=== PATIENT | male | born 1945 | race Hispanic/Latino ===

== ENCOUNTER 2017-03-31 13:55 | Outpatient (CLI) | payer MEDICARE, BC ==
[2017-03-31 15:09] LABS: Blood Urea Nitrogen 20 mg/dL (9-20)
[2017-03-31] MEDS ORDERED: NACL ONE (15:39)
--- NOTE | 2017-03-31 16:31 | Cat Scan Report ---
Cranial CT with and without contrast. History: Hypogonadism. Findings: The posterior fossa is normal. The ventricles are normal in size and contour. Cortical atrophy is mild. There are no masses or extra-axial collections. There is no parenchymal enhancement after contrast administration. The calvarium is intact. Impression: Mild atrophic changes, otherwise unremarkable study.
== END 2017-03-31 13:56 | disposition home or self-care (01) ==
LOC: MRI 13:55 → CT 13:56
PROVIDERS: ATTEND Internal Medicine
DX: E29.1 Testicular hypofunction (principal); G31.89 Other specified degenerative diseases of nervous system
CPT/HCPCS: 36415; 70470; 82565; 84520; Q9967

== ENCOUNTER 2017-04-10 11:04 | Outpatient (CLI) | payer MEDICARE, BC ==
--- NOTE | 2017-04-10 14:53 | Magnetic Resonance Report ---
MRI BRAIN WITH/WITHOUT CONTRAST: History: Hypogonadism Technique: Multiple T1 and T2 weighted images were obtained in multiple planes. Axial diffusion and gradient imaging was performed. Post contrast T1 images in two planes were obtained following IV gadolinium. Findings: Mild diffuse cortical volume loss and nonspecific chronic white matter changes are identified which appear appropriate for this persons age. The brain parenchyma signal intensity and its richards-white interface are normal on all sequences. No abnormal parenchymal signal. No diffusion restriction, hemorrhage, mass effect or extra-axial fluid collection. Ventricular size is normal and symmetric. The basal cisterns are clear. Sella turcica contents are unremarkable. The brainstem and cerebellar hemispheres are within normal limits. The fourth ventricle is midline. The paranasal sinuses and mastoid air cells are well aerated. Normal flow voids are identified in the appropriate vessels at the [place]. No abnormal enhancement is identified following IV gadolinium. Impression: Essentially unremarkable MR brain with and without contrast. Age appropriate volume loss and chronic white matter changes. No sellar abnormality is appreciated.
--- NOTE | 2017-04-10 14:54 | Magnetic Resonance Report ---
MRA HEAD WITHOUT CONTRAST HISTORY: Hypogonadism. [id number] imaging with MIP reformations of the [place] is submitted. The arteries appear widely patent and free of hemodynamically significant stenosis or aneurysm dilatation. Both vertebral arteries are identified appearing patent as well. IMPRESSION: Unremarkable MRA head.
== END 2017-04-10 11:05 | disposition home or self-care (01) ==
LOC: MRI 11:04
PROVIDERS: ATTEND Internal Medicine
DX: E29.1 Testicular hypofunction (principal); R90.82 White matter disease, unspecified
CPT/HCPCS: 70544; 70553; A9577

== ENCOUNTER 2019-03-31 10:42 | Outpatient (CLI) | payer MEDICARE ==
[2019-03-31 13:07] LABS: Hematocrit 37.1 % (35.5-45.6); Hemoglobin 12.5 gm/dl (11.8-15.2); Mean Corpuscular HGB Conc 34 % (32-34); Mean Corpuscular Volume 88 fl (84-94); Platelet Count 240 K/mm3 (140-440); Red Blood Count 4.23 M/mm3 (3.65-5.03); Red Cell Distribution Width 16.7 % (13.2-15.2)
[2019-03-31 13:25] LABS: Alanine Aminotransferase 26 units/L (7-56); Albumin 4.4 g/dL (3.9-5); BUN/Creatinine Ratio 63; Blood Urea Nitrogen 25 mg/dL (9-20); Calcium 9.6 mg/dL (8.4-10.2); Hemolysis Index 4; LDL Cholesterol,Direct 65 mg/dL (50-130)
[2019-03-31 13:36] LABS: Chol/HDL Ratio 2.07 %; HDL Cholesterol 66 mg/dL (40-59)
[2019-04-03 14:04] LABS: Vitamin D, 25-OH, D2 <4 ng/mL
== END 2019-03-31 10:43 | disposition home or self-care (01) ==
LOC: LAB 10:42
PROVIDERS: ATTEND Internal Medicine
DX: E78.2 Mixed hyperlipidemia (principal); E66.09 Other obesity due to excess calories; Z13.21 Encounter for screening for nutritional disorder; R73.03 Prediabetes
CPT/HCPCS: 36415; 80053; 80061; 82306; 82607; 84443; 85027

== ENCOUNTER 2019-08-09 14:40 | Outpatient (CLI) | payer MEDICARE ==
--- NOTE | 2019-08-09 15:28 | XRay Report ---
CHEST 2 VIEWS INDICATION: Z01.810 ENCOUNTER FOR PREPROCEDURAL CARDIOVASCULAR EXAMINATION. COMPARISON: None. FINDINGS: Support devices: None. Heart: Within normal limits. Pulmonary vasculature: Normal. Lungs/pleura: The lungs are normally expanded but hyperlucent. No airspace disease or pleural effusio n. No pneumothorax. Additional findings: Aortic calcification and tortuosity. Degenerative change in the spine. IMPRESSION: 1. No acute findings. 2. Hypertensive/atherosclerotic changes in the aorta. 3. COPD. Signer Name: Claude West MD Signed: 08/09/2019 3:23 PM Workstation Name: [id number]
== END 2019-08-09 14:41 | disposition home or self-care (01) ==
LOC: XRAY 14:40
PROVIDERS: ATTEND Internal Medicine
DX: Z01.810 Encounter for preprocedural cardiovascular examination (principal); J44.9 Chronic obstructive pulmonary disease, unspecified; I70.0 Atherosclerosis of aorta; M47.819 Spondylosis without myelopathy or radiculopathy, site unspecified
CPT/HCPCS: 71046

== ENCOUNTER 2019-08-16 12:28 | Outpatient (CLI) | payer MEDICARE ==
[2019-08-16 12:51] LABS: Basophils # (Auto) 0.1 K/mm3 (0.0-0.1); Basophils % (Auto) 0.9 % (0.0-1.8); Eosinophils # (Auto) 0.1 K/mm3 (0.0-0.4); Eosinophils % (Auto) 2.2 % (0.0-4.3); Lymphocytes # (Auto) 0.5 K/mm3 (1.2-5.4); Lymphocytes % (Auto) 9.3 % (13.4-35.0); Mean Corpuscular HGB Conc 33 % (32-34); Mean Corpuscular Volume 87 fl (84-94); Monocytes # (Auto) 0.6 K/mm3 (0.0-0.8); Monocytes % (Auto) 11.9 % (0.0-7.3); Platelet Count 185 K/mm3 (140-440); Red Blood Count 4.12 M/mm3 (3.65-5.03); Red Cell Distribution Width 14.6 % (13.2-15.2)
[2019-08-16 12:54] LABS: Bacteria,Urine 1+ /HPF (Negative); Bilirubin,Urine NEG (Negative); Blood,Urine NEG (Negative); Color,Urine Yellow (Yellow); Mucus,Urine FEW /HPF; Protein,Urine <15 mg/dL mg/dL (Negative); Urobilinogen,Urine < 2.0 mg/dL (<2.0)
[2019-08-16 13:00] LABS: INR 0.92 (0.87-1.13)
[2019-08-16 13:01] LABS: Partial Thromboplastin Time 30.6 Sec. (24.2-36.6)
[2019-08-16 13:12] LABS: Alanine Aminotransferase 61 units/L (7-56); Albumin 4.1 g/dL (3.9-5); BUN/Creatinine Ratio 50; Blood Urea Nitrogen 25 mg/dL (9-20); Hemolysis Index 1
== END 2019-08-16 12:29 | disposition home or self-care (01) ==
LOC: LAB 12:28
PROVIDERS: ATTEND Internal Medicine
DX: Z01.810 Encounter for preprocedural cardiovascular examination (principal); R73.03 Prediabetes
CPT/HCPCS: 36415; 80053; 81001; 83036; 85025; 85610; 85730; 87086

== ENCOUNTER 2019-11-01 12:01 | Outpatient (CLI) | payer MEDICARE ==
[2019-11-01 14:00] LABS: Alanine Aminotransferase 34 units/L (7-56); Albumin 4.3 g/dL (3.9-5)
[2019-11-01 14:03] LABS: Bilirubin,Direct < 0.2 mg/dL (0-0.2)
== END 2019-11-01 12:02 | disposition home or self-care (01) ==
LOC: LAB 12:01
PROVIDERS: ATTEND Internal Medicine
DX: R74.0 Nonspecific elevation of levels of transaminase and lactic acid dehydrogenase [LDH] (principal)
CPT/HCPCS: 36415; 80076

== ENCOUNTER 2021-11-11 13:52 | Outpatient (CLI) | payer MEDICARE, BC ==
--- NOTE | 2021-11-11 16:42 | XRay Report ---
CHEST 2 VIEWS INDICATION / CLINICAL INFORMATION: R05.1 ACUTE COUGH. COMPARISON: 08/09/19 FINDINGS: SUPPORT DEVICES: None. HEART / MEDIASTINUM: No significant abnormality. LUNGS / PLEURA: No significant pulmonary or pleural abnormality. No pneumothorax. ADDITIONAL FINDINGS: No significant additional findings. IMPRESSION: 1. No acute findings. No change. Signer Name: Manan Turcios MD Signed: 11/11/2021 4:38 PM Workstation Name: [email or web address]
== END 2021-11-11 13:53 | disposition home or self-care (01) ==
LOC: XRAY 13:52
PROVIDERS: ATTEND Internal Medicine
DX: R05.1 Acute cough (principal)
CPT/HCPCS: 71046

== ENCOUNTER 2022-04-15 11:23 | Outpatient (CLI) | payer MEDICARE, BC ==
--- NOTE | 2022-04-15 12:57 | Vascular Lab Report ---
DUPLEX DOPPLER LOWER EXTREMITY VEINS, RIGHT INDICATION: R60.9 EDEMA,UNSPECIFIED. TECHNIQUE: Duplex doppler imaging was performed through the veins of the right lower extremity using venous compression and other maneuvers. COMPARISON: No relevant prior imaging study available. FINDINGS: Right Common femoral vein: Negative. Right Superficial femoral vein: Negative. Right Popliteal vein: Negative. Right Calf veins: Negative. Additional findings: None. IMPRESSION: No sonographic evidence for DVT in the right lower extremity. Signer Name: Trip Yepez Jr, MD Signed: 04/15/2022 12:53 PM Workstation Name: [id number]
== END 2022-04-15 11:24 | disposition home or self-care (01) ==
LOC: VAS 11:23
PROVIDERS: ATTEND Internal Medicine
DX: R60.9 Edema, unspecified (principal)